=== PATIENT | female | born 1950 | race Caucasian/White ===

== ENCOUNTER 2016-06-27 09:18 | Inpatient (IN) | payer MEDICARE ==
[~2016-06-27] VITALS: Ht 162.6 cm; Wt 75.3 kg
[~2016-06-27 09:18] MED LIST: ADVIL200 MG PO; ASPI325T6 PO; BUPROPION75 MG PO; CARAFATE 1GM1 G PO; CEPHALEXIN500 M1 PO; CIPRO 500MG TA500 MG PO; MELATONIN5 M1 SL; NORCO 325 MG-7.1 TAB PO; OXY IR5 MG PO; PERCOCET 325 MG1 TA2 PO; PHENERGAN 25 TA25 MG PO; PREDFORTE5ML; PRILOSEC 20MG20 MG PO; SENOKOT S 50 MG1 TAB PO; SYNTHROID0.075 MG PO; SYNTHROID0.075 MG/T PO; TYLENOL 500MG500 MG PO
[2016-08-08] MEDS ORDERED: VITAMIN D 400400 IU PO (11:35)
[2016-08-08] MEDS ORDERED: FERROUS SU325 MG/TAB PO (11:35)
[2016-08-08] MEDS ORDERED: TYLENOL 500MG500 MG PO (11:35)
[2016-08-08] MEDS ORDERED: ADVIL200 MG PO (11:35)
[2016-08-08] MEDS ORDERED: VITAMIN C500 MG PO (11:36)
[2016-08-08] MEDS ORDERED: FOLIC ACID0.4 MG PO (11:36)
[2016-08-09] VITALS (12 sets, daily range): BP systolic 107–140; BP diastolic 55–81; PULSE 81–98; TEMP 97.7–99.2
[2016-08-09] MEDS ORDERED: FOLIC ACID 40400 MCG PO (07:59)
[2016-08-09] MEDS ORDERED: MULTIVITAMIN1 CTB PO (08:02)
[2016-08-09] MEDS ORDERED: GAVISCON F1 TAB.CHEW (08:02)
[2016-08-09] MEDS ORDERED: B COMPLEX #11 TA1 PO (08:02)
[2016-08-09] MEDS ORDERED: FIBERCON PO (08:03)
[2016-08-10 01:32] VITALS: BP 107/64; PULSE 75; TEMP 99.4
[2016-08-10 04:43] VITALS: BP 112/62; PULSE 75; TEMP 99.4
[2016-08-10 07:01] LABS: HEMATOCRIT 34.7 % (37.0-47.0); HEMOGLOBIN 11.5 g/dl (12.5-16.0)
[2016-08-10 07:28] VITALS: BP 113/56; PULSE 88; TEMP 98.5
[2016-08-10 12:15] VITALS: BP 124/73; PULSE 80; TEMP 98.3
[2016-08-10 16:07] VITALS: BP 126/73; PULSE 79; TEMP 98.6
[2016-08-10 20:44] VITALS: BP 141/67; PULSE 75; TEMP 98.7
[2016-08-11] VITALS: BP 130/63; PULSE 71; TEMP 98.8
[2016-08-11 04:27] VITALS: BP 121/61; PULSE 76; TEMP 98.4
[2016-08-11 07:48] LABS: HEMATOCRIT 33.1 % (37.0-47.0); HEMOGLOBIN 11.1 g/dl (12.5-16.0)
[2016-08-11 08:00] VITALS: BP 133/77; PULSE 93; TEMP 98.8
[2016-08-11 12:21] VITALS: BP 111/60; PULSE 89; TEMP 98.9
[2016-08-11 16:16] VITALS: BP 113/67; PULSE 98; TEMP 98.8
[2016-08-11 20:54] VITALS: BP 110/66; PULSE 106; TEMP 98.9
[2016-08-12 01:26] VITALS: BP 115/59; PULSE 110; TEMP 98.4
[2016-08-12 04:58] VITALS: BP 113/50; PULSE 65; TEMP 99.5
[2016-08-12] MEDS ORDERED: NORCO 325 MG-7.1 TAB PO (06:32)
[2016-08-12] MEDS ORDERED: ROXICODONE 55 MG/TAB PO (06:33)
[2016-08-12] MEDS ORDERED: TYLENOL 500MG500 MG PO (06:34)
[2016-08-12] MEDS ORDERED: COLACE 100100 MG/CAP PO (06:35)
[2016-08-12] MEDS ORDERED: ULTRAM 50MG TAB50 MG PO (06:38)
[2016-08-12 07:21] VITALS: BP 92/54; PULSE 108; TEMP 99.4
[2016-08-12 12:02] VITALS: BP 110/57; PULSE 61; TEMP 98.4
== END 2016-08-12 13:36 | disposition home or self-care (01) | DRG 470 ==
LOC: JCC 08-09 06:54
PROVIDERS: Orthopaedic Surgery
PROC: 0SRD0J9 Replacement of Left Knee Joint with Synthetic Substitute, Cemented, Open Approach (ICD-10-PCS; principal; 2016-08-09 09:15)
DX: M17.12 Unilateral primary osteoarthritis, left knee (principal); Z85.3 Personal history of malignant neoplasm of breast; Z86.73 Personal history of transient ischemic attack (TIA), and cerebral infarction without residual deficits
CPT/HCPCS: A4315; A9284; C1713; C1776; J0690; J2250; J2270; J2300; J2310; J2405; J2704; J3010; J7120

== ENCOUNTER → 2016-08-01 | Outpatient (CLI) | payer MEDICARE ==
[~2016-08-01] MED LIST changes: +ASPIRIN 32325 MG/TAB PO; +B COMPLEX #11 TA1 PO; +COLACE 100100 MG/CAP PO; +FERROUS SU325 MG/TAB PO; +FIBERCON PO; +FLAGYL500 MG PO; +FOLIC ACID 40400 MCG PO; +FOLIC ACID0.4 MG PO; +GAVISCON F1 TAB.CHEW; +MULTIVITAMIN1 CTB PO; +ROXICODONE 55 MG/TAB PO; +ULTRAM 50MG TAB50 MG PO; +VITAMIN C500 MG PO; +VITAMIN D 400400 IU PO
== END ==
LOC: COL.LAB 13:10
DX: Z01.89 Encounter for other specified special examinations (principal)

== ENCOUNTER → 2016-08-22 | Outpatient (CLI) | payer MEDICARE | LOC: COL.RAD 09:57 | DX: M79.605 Pain in left leg (principal); R60.0 Localized edema ==

== ENCOUNTER 2016-10-03 09:08 | Emergency (ER) | payer MEDICARE, OTHER ==
[~2016-10-03] VITALS: Ht 160 cm; Wt 86.4 kg
[~2016-10-03 09:08] MED LIST changes: -ASPIRIN 32325 MG/TAB PO; -FLAGYL500 MG PO
[2016-10-03 09:10] VITALS: TEMP 98.2
[2016-10-03 10:07] LABS: BASO % 0.5 % (0.0-2.0); EOS # 0.2 (0.0-0.7); EOS % 3.3 % (0-4.0); GRAN # 3.4 (1.4-6.5); GRAN % 58.6 % (42.2-75.2); HEMATOCRIT 42.4 % (37.0-47.0); HEMOGLOBIN 14.1 g/dl (12.5-16.0); LYMPH # 1.7 (1.2-3.4); LYMPH % 28.5 % (20.0-51.0); MEAN CELL VOLUME 88 fl (80.0-100.0); MEAN CORPUSCULAR HEMOGLOBIN 29 pg (27.0-31.0); MEAN CORPUSCULAR HGB CONC 33 g/dl (33.0-37.0); MONO # 0.5 (0.1-0.6); MONO % 8.9 % (1.7-9.3); PLATELET COUNT 188 K/mm3 (130-400); RED BLOOD COUNT 4.84 M/mm3 (4.10-5.30); REDCELL DISTRIBUTION WIDTH-CV 13.5 % (11.5-14.5); WHITE BLOOD COUNT 5.8 K/mm3 (4.8-10.8)
[2016-10-03 10:17] LABS: ADJUSTED CALCIUM 9.4 mg/dL (8.4-10.2); ALBUMIN 4.1 gm/dL (3.5-5.0); BILIRUBIN,TOTAL 0.8 mg/dL (0.0-1.0); C-REACTIVE PROTEIN 0.8 mg/dL (0.0-0.9); CALCIUM 9.5 mg/dL (8.4-10.2); CREATININE, serum 0.66 mg/dL (0.52-1.25); POTASSIUM 3.5 mmol/L (3.4-5.0); TOTAL PROTEIN 7.4 gm/dL (6.4-8.2)
[2016-10-03 11:37] LABS: PH 6 (5-8); SQUAMOUS EPITHELIAL 0-2 /hpf; URINE APPEARANCE Clear; URINE BACTERIA Rare /hpf; URINE BILIRUBIN Negative (NEGATIVE); URINE BLOOD Negative (NEGATIVE); URINE COLOR Yellow; URINE GLUCOSE Negative (NEGATIVE); URINE KETONE Trace (NEGATIVE); URINE RBC 0-2 /hpf; URINE UROBILINOGEN Negative (NEGATIVE); URINE WBC 0-2 /hpf
[2016-10-03] MEDS ORDERED: ASPIRIN 32325 MG/TAB PO (12:08)
[2016-10-03] MEDS ORDERED: CARAFATE 1GM1 G PO (12:09)
[2016-10-03] MEDS ORDERED: CIPRO 500MG TA500 MG PO (12:43)
[2016-10-03] MEDS ORDERED: FLAGYL500 MG PO (12:43)
[2016-10-03 13:00] VITALS: BP 138/86; PULSE 80
== END 2016-10-03 13:00 | disposition home or self-care (01) ==
LOC: COL.ER 09:08
PROVIDERS: Physician Assistant
DX: K57.32 Diverticulitis of large intestine without perforation or abscess without bleeding (principal); K21.9 Gastro-esophageal reflux disease without esophagitis
CPT/HCPCS: J1170; J2405; J7030; Q9967

== ENCOUNTER 2017-10-13 07:12 | Outpatient (CLI) | payer MEDICARE ==
[~2017-10-13] VITALS: Ht 162.7 cm; Wt 88.6 kg
[~2017-10-13 07:12] MED LIST changes: +ASPIRIN 32325 MG/TAB PO; +ASPIRIN E.C. 8181 MG PO; +FLAGYL500 MG PO; +OMEGA-3 1000 MG1 CAP PO; +PROBIOTIC FORMU1 CAP PO; +SYNTHROID0.05 MG/TA PO
[2017-10-13] MEDS ORDERED: ASPI325T6 PO (08:01)
[2017-10-13] MEDS ORDERED: TUMS ULTRA ST1000 MG PO (08:02)
[2017-10-13] MEDS ORDERED: BENEFIBER (08:03)
[2017-10-13] MEDS ORDERED: ADVIL200 MG PO (08:03)
[2017-10-13] MEDS ORDERED: TYLENOL 325MG325 MG PO (08:03)
[2017-10-13 08:16] VITALS: BP 141/90; PULSE 91; TEMP 98
[2017-10-13 08:31] LABS: HEMATOCRIT 38.4 % (37.0-47.0); HEMOGLOBIN 12.9 g/dl (12.5-16.0); MEAN CELL VOLUME 87 fl (80.0-100.0); MEAN CORPUSCULAR HEMOGLOBIN 29 pg (27.0-31.0); MEAN CORPUSCULAR HGB CONC 34 g/dl (33.0-37.0); MEAN PLATELET VOLUME 11.1 fl (7.4-10.4); PLATELET COUNT 167 K/mm3 (130-400); REDCELL DISTRIBUTION WIDTH-CV 14.1 % (11.5-14.5)
[2017-10-13 08:37] LABS: CALCIUM 9.8 mg/dL (8.4-10.2); CREATININE, serum 0.79 mg/dL (0.52-1.25); POTASSIUM 3.5 mmol/L (3.4-5.0)
[2017-10-13 08:46] LABS: PROTHROMBIN TIME 11.6 SECONDS (9.7-12.8)
[2017-10-13 09:10] VITALS: BP 148/93; PULSE 73
[2017-10-13 09:25] VITALS: BP 147/81; PULSE 82
[2017-10-13 09:40] VITALS: BP 142/89; PULSE 66
[2017-10-13 09:55] VITALS: BP 119/88; PULSE 80
== END 2017-10-13 10:30 | disposition home or self-care (01) ==
LOC: COL.RAD 07:12
PROVIDERS: Internal Medicine Interventional Cardiology
DX: I51.7 Cardiomegaly (principal)
CPT/HCPCS: J2250; J3010

== ENCOUNTER 2017-11-08 18:13 | Observation (INO) | payer MEDICARE ==
[~2017-11-08] VITALS: Ht 162.6 cm; Wt 88.0 kg
[~2017-11-08 18:13] MED LIST changes: +BENEFIBER; +TUMS ULTRA ST1000 MG PO; +TYLENOL 325MG325 MG PO
[2017-11-08 18:34] LABS: BASO % 0.5 % (0.0-2.0); EOS # 0.2 (0.0-0.7); EOS % 2.7 % (0-4.0); GRAN # 3.1 (1.4-6.5); GRAN % 52.7 % (42.2-75.2); HEMATOCRIT 40.1 % (37.0-47.0); HEMOGLOBIN 13.4 g/dl (12.5-16.0); LYMPH # 2.2 (1.2-3.4); LYMPH % 36.2 % (20.0-51.0); MEAN CELL VOLUME 87 fl (80.0-100.0); MEAN CORPUSCULAR HEMOGLOBIN 29 pg (27.0-31.0); MEAN CORPUSCULAR HGB CONC 33 g/dl (33.0-37.0); MEAN PLATELET VOLUME 10.8 fl (7.4-10.4); MONO # 0.5 (0.1-0.6); MONO % 7.7 % (1.7-9.3); PLATELET COUNT 183 K/mm3 (130-400); REDCELL DISTRIBUTION WIDTH-CV 14.5 % (11.5-14.5)
[2017-11-08 18:48] LABS: ALANINE AMINOTRANSFERASE 46 U/L (9-52); ALKALINE PHOSPHATASE 66 U/L (50-136); ANION GAP 10 mmol/L (7-16); AST,SGOT 51 U/L (15-37); BILIRUBIN,TOTAL 0.4 mg/dL (0.0-1.0); BLOOD UREA NITROGEN 17 mg/dL (7-17); CARBON DIOXIDE 27 mmol/L (22-30); CHLORIDE 101 mmol/L (98-107); CREATININE, serum 0.69 mg/dL (0.52-1.25); GLUCOSE 140 mg/dL (74-106); POTASSIUM 3.2 mmol/L (3.4-5.0); SODIUM 138 mmol/L (137-145); TOTAL PROTEIN 7.1 gm/dL (6.4-8.2)
[2017-11-08 19:01] LABS: TROPONIN-I < 0.012 ng/mL (0.000-0.034)
[2017-11-08] MEDS ORDERED: WELLBUTRIN 100100 MG PO (21:08)
[2017-11-08] MEDS ORDERED: MELAT3MGTAB PO (21:10)
[2017-11-08] MEDS ORDERED: TYLENOL 325MG325 MG PO (21:11)
[2017-11-08 21:29] VITALS: BP 114/71; PULSE 46; TEMP 98.3
[2017-11-08 21:34] VITALS: BP 114/71; PULSE 46; TEMP 98.3
[2017-11-09] VITALS (10 sets, daily range): BP systolic 116–160; BP diastolic 60–89; PULSE 64–112; TEMP 97.9–98.7
[2017-11-09 08:52] LABS: BASO % 0.6 % (0.0-2.0); EOS # 0.1 (0.0-0.7); EOS % 2.3 % (0-4.0); GRAN # 2.2 (1.4-6.5); GRAN % 46.6 % (42.2-75.2); HEMATOCRIT 39.4 % (37.0-47.0); HEMOGLOBIN 13.1 g/dl (12.5-16.0); LYMPH # 1.9 (1.2-3.4); LYMPH % 40.3 % (20.0-51.0); MEAN CELL VOLUME 88 fl (80.0-100.0); MEAN CORPUSCULAR HEMOGLOBIN 29 pg (27.0-31.0); MEAN CORPUSCULAR HGB CONC 33 g/dl (33.0-37.0); MEAN PLATELET VOLUME 11.3 fl (7.4-10.4); MONO # 0.5 (0.1-0.6); MONO % 9.8 % (1.7-9.3); PLATELET COUNT 167 K/mm3 (130-400); RED BLOOD COUNT 4.48 M/mm3 (4.10-5.30); REDCELL DISTRIBUTION WIDTH-CV 14.4 % (11.5-14.5)
[2017-11-09 09:01] LABS: CALCIUM 9.2 mg/dL (8.4-10.2); CHOLESTEROL RISK RATIO 3.6; CREATININE, serum 0.85 mg/dL (0.52-1.25); MAGNESIUM 1.9 mg/dL (1.6-2.3); POTASSIUM 3.9 mmol/L (3.4-5.0)
== END 2017-11-09 16:08 | disposition home or self-care (01) ==
LOC: COL.ER 18:13 → MEDICAL 20:09
PROVIDERS: Emergency Medicine; Nurse Practitioner
DX: R07.9 Chest pain, unspecified (principal); E87.6 Hypokalemia; E03.9 Hypothyroidism, unspecified; K21.9 Gastro-esophageal reflux disease without esophagitis; E66.9 Obesity, unspecified; Z90.710 Acquired absence of both cervix and uterus; Z96.653 Presence of artificial knee joint, bilateral; Z79.82 Long term (current) use of aspirin; Z88.5 Allergy status to narcotic agent; Z86.73 Personal history of transient ischemic attack (TIA), and cerebral infarction without residual deficits; Z85.3 Personal history of malignant neoplasm of breast; Z80.3 Family history of malignant neoplasm of breast; Z83.3 Family history of diabetes mellitus; Z82.3 Family history of stroke; Z82.61 Family history of arthritis
CPT/HCPCS: A9502; G0378; J1650; J1940; J2785; J7030; Q9967

== ENCOUNTER 2018-05-13 08:55 | Emergency (ER) | payer MEDICARE ==
[~2018-05-13] VITALS: Ht 162.6 cm; Wt 93.2 kg
[~2018-05-13 08:55] MED LIST changes: +MELAT3MGTAB PO; +WELLBUTRIN 100100 MG PO
[2018-05-13 08:59] VITALS: TEMP 97.1
[2018-05-13 09:23] LABS: BASO % 0.8 % (0.0-2.0); EOS # 0.1 (0.0-0.7); EOS % 2.7 % (0-4.0); GRAN # 2.2 (1.4-6.5); GRAN % 45.8 % (42.2-75.2); HEMATOCRIT 39.8 % (37.0-47.0); HEMOGLOBIN 13.1 g/dl (12.5-16.0); LYMPH % 41.1 % (20.0-51.0); MEAN CELL VOLUME 88 fl (80.0-100.0); MEAN CORPUSCULAR HEMOGLOBIN 29 pg (27.0-31.0); MEAN CORPUSCULAR HGB CONC 33 g/dl (33.0-37.0); MEAN PLATELET VOLUME 11.3 fl (7.4-10.4); MONO # 0.5 (0.1-0.6); MONO % 9.2 % (1.7-9.3); PLATELET COUNT 174 K/mm3 (130-400); RED BLOOD COUNT 4.52 M/mm3 (4.10-5.30); REDCELL DISTRIBUTION WIDTH-CV 13.6 % (11.5-14.5)
[2018-05-13 09:27] LABS: ALANINE AMINOTRANSFERASE 29 U/L (9-52); ALBUMIN 3.7 gm/dL (3.5-5.0); ALKALINE PHOSPHATASE 93 U/L (50-136); ANION GAP 6 mmol/L (7-16); AST,SGOT 31 U/L (15-37); BILIRUBIN,TOTAL 0.5 mg/dL (0.0-1.0); BLOOD UREA NITROGEN 20 mg/dL (7-17); CALCIUM 9.4 mg/dL (8.4-10.2); CARBON DIOXIDE 30 mmol/L (22-30); CHLORIDE 101 mmol/L (98-107); CREATININE, serum 0.75 mg/dL (0.52-1.25); GLUCOSE 125 mg/dL (74-106); LIPASE 109 U/L (23-300); POTASSIUM 3.6 mmol/L (3.4-5.0); SODIUM 138 mmol/L (137-145)
[2018-05-13 09:33] LABS: INR 0.9 (0.8-3.0); PROTHROMBIN TIME 10.7 SECONDS (9.7-12.8)
[2018-05-13 09:41] LABS: TROPONIN-I < 0.012 ng/mL (0.000-0.035)
[2018-05-13 13:14] VITALS: BP 115/75; PULSE 70
== END 2018-05-13 13:22 | disposition home or self-care (01) ==
LOC: COL.ER 08:55
PROVIDERS: Emergency Medicine
DX: R07.89 Other chest pain (principal); E03.9 Hypothyroidism, unspecified; Z90.710 Acquired absence of both cervix and uterus; Z98.51 Tubal ligation status; Z90.89 Acquired absence of other organs; Z79.82 Long term (current) use of aspirin
CPT/HCPCS: J7030; Q9967

== ENCOUNTER → 2018-09-06 | Outpatient (CLI) | payer MEDICARE ==
[2018-09-06 21:59] LABS: RHEUMATOID FACTOR-SCREEN <15 IU/mL (0-29)
[2018-09-08 12:13] LABS: ANGIOTENSIN CONVERTING ENZYME 49 U/L (16 - 85)
== END ==
LOC: COL.LAB 16:10
PROVIDERS: Internal Medicine Pulmonary Disease
DX: R06.02 Shortness of breath (principal)

== ENCOUNTER → 2018-09-10 | Outpatient (CLI) | payer MEDICARE | LOC: COL.PUL 09:53 | DX: R06.02 Shortness of breath (principal) | CPT/HCPCS: J7674 ==